=== PATIENT | male | born 1935 | race Caucasian/White ===

== ENCOUNTER 2022-12-19 22:53 | Inpatient (IN) | payer MEDICARE, OTHER ==
[~2022-12-19] VITALS: Ht 185.4 cm; Wt 68.9 kg
--- NOTE | 2022-12-19 23:11 | NUR ---
To ER bed 11, [id number] from home for syncopal episode, found by family in hallway, no injuries noted, aaox4, breathing even and non labored, connected to monitor, awaiting md orders
[2022-12-19] MEDS ORDERED: IV NS 0.9% 500 ML BAG IV ONE (23:30)
--- NOTE | 2022-12-19 23:31 | NUR ---
BLOOD SENT TO LAB
[2022-12-19 23:51] LABS: BASOPHILS % (AUTO) 0.1 % (0.0-2.0); HEMATOCRIT 34 % (39-51); HEMOGLOBIN 11.6 g/dL (13.5-17.5); LYMPHOCYTES # (AUTO) 0.2 K/uL (0.8-4.8); LYMPHOCYTES % (AUTO) 1.2 % (20.0-44.0); MEAN CORPUSCULAR HGB CONC 35 g/dl (31.0-36.0); MEAN CORPUSCULAR VOLUME 104 fL (80-96); MONOCYTES # (AUTO) 0.9 K/uL (0.1-1.30); MONOCYTES % (AUTO) 4.5 % (2.0-12.0); NEUTROPHILS % (AUTO) 94.2 % (43.0-81.0); PLATELET COUNT (AUTO) 114 K/uL (150-450); RED BLOOD CELL COUNT(AUTO) 3.25 MIL/uL (4.5-6.0); WHITE BLOOD COUNT (AUTO) 19.1 K/uL (4.3-11.0)
[2022-12-19 23:59] LABS: CALCIUM, SERUM 8.6 mg/dL (8.5-10.1); CARBON DIOXIDE 26 mmol/L (21-32); CHLORIDE 108 mmol/L (98-107); CREATININE 1.4 mg/dL (0.6-1.3); GLUCOSE 139 mg/dL (74-106); SODIUM SERUM 141 mmol/L (136-145); UREA NITROGEN, BLOOD 21 mg/dL (7-18)
[2022-12-20 00:08] LABS: ALANINE AMINOTRANSFERASE 8 U/L (12-78); ALBUMIN 3.3 g/dL (3.4-5.0); ALKALINE PHOSPHATASE 106 U/L (46-116); ASPARTATE AMINOTRANSFERASE 18 U/L (15-37); BILIRUBIN,DIRECT 0.5 mg/dL (0.0-0.2); BILIRUBIN,TOTAL 1.8 mg/dL (0.2-1.0)
--- NOTE | 2022-12-20 00:10 | NUR ---
COVID SWAB DONE AND SENT TO LAB
--- NOTE | 2022-12-20 00:16 | NUR ---
TAKEN TO CT
--- NOTE | 2022-12-20 00:16 | NUR ---
118 DEEPALI WORTHY MADE AWARE
--- NOTE | 2022-12-20 02:19 | NUR ---
PT USED BEDSIDE COMMODE. NEEDS MET
--- NOTE | 2022-12-20 02:52 | NUR ---
REPORT GIVEN TO MARIEL FERREIRA FOR DAISY
[2022-12-20] MEDS ORDERED: IV NS 0.9% 1,000 ML IV ONE (03:30)
[2022-12-20 03:44] VITALS: BP 94/42
--- NOTE | 2022-12-20 03:50 | NUR ---
INDUSTRIAL SAFETY ENGINEER NOTE PT RECEIVED FROM ER VIA PARISA TOLD ER NURSE ABOUT TROP 131, PER HER SHE WILL LET [employer] [facility] KNOW ABOUT IT. PT IS A/O X 3, NO SOB, NO DISTRESS OR DISCOMFORT NOTED. DENIES PAIN. RAC #20G SL INTACT AND PATENT. SKIN INTACT. ON TELE SR VSS. SIDE RAILS UP X 3 AND CALL LIGHT WITHIN REACH. CONTINUE TO MONITOR.
[2022-12-20] MEDS ORDERED: TEMAZEPAM 15 MG CAPSULE PO PRN (04:00)
[2022-12-20] MEDS ORDERED: ONDANSETRON HCL/PF 4 MG/2 ML VIAL IVP PRN (04:00)
[2022-12-20] MEDS ORDERED: MORPHINE SULFATE INJ 2 MG/ML DISP.SYRIN IV PRN (04:00)
[2022-12-20] MEDS ORDERED: MAG HYDROX/AL HYDROX/SIMETH 30 ML UDC PO PRN (04:00)
[2022-12-20] MEDS ORDERED: ACETAMINOPHEN 325 MG TABLET PO PRN (04:00)
[2022-12-20] MEDS ORDERED: IV NS 0.9% 1,000 ML IV PRN (04:00)
[2022-12-20] MEDS ORDERED: HYDROCODONE/APAP 5/325MG TABLET PO PRN (04:00)
[2022-12-20] MEDS ORDERED: Z GUARD REMEDY 4 OZ OINT TP PRN (04:00)
[2022-12-20] MEDS ORDERED: MAGNESIUM HYDROXIDE 30 ML UDC PO PRN (04:00)
--- NOTE | 2022-12-20 04:16 | NUR ---
COPYRIGHT MANAGER NOTE PT IS DX SYNCOPE,NSTEMI EJ BY HUGO MORALES.
[2022-12-20 06:00] VITALS: BP 105/43
--- NOTE | 2022-12-20 06:51 | NUR ---
EXPLOSIVE OPERATOR BOMB NOTE PT IN BED AWAKE. NO DISTRESS OR DISCOMFORT NOTED. ON IVF NS 75 ML/HR INFUSING WELL. NO S/S OF INFILTRATION NOTED. WILL ENDORSE TO DAY SHIFT NURSE FOR CONTINUE TO CARE.
[2022-12-20] MEDS ORDERED: PANTOPRAZOLE 40 MG TABLET.DR PO SCH (07:30)
--- NOTE | 2022-12-20 07:30 | NUR ---
YARD JOCKEY OPENING NOTE: RECEIVED PT IN BED AAOX3. PLEASANT AND COOPERATIVE. NO SOB. NO DYSPNEA NOTE. DENIES PAIN OR DISCOMFORT. R AC 20 G INTACT AND PATENT. ABLE TO DENY PAIN OR DISCOMFORT. WILL CONT TO MONITOR
--- NOTE | 2022-12-20 07:45 | NUR ---
SOFTWARE MAINTENANCE ENGINEER NOTE: DAUGHTER CAME AT BEDSIDE. REQUEST TO GO AMA. NOTIFIED. SIGNED AMA FORM AND PLACED IN CHART. PT IS AAOX3. IV ACCESS REMOVED. INTACT TIP. ID BAND REMOVED. TELE BOX REMOVED. PT BELONGINGS ACCOUNTED FOR. ACCOMPANIED VIA WHEELCHAIR TO EVERTON GARCIA IN FRONT OF THE HOSPITAL.
[2022-12-20] MEDS ORDERED: ASPIRIN 81 MG TAB.CHEW PO SCH (09:00)
== END 2022-12-20 08:29 | disposition left against medical advice (07) | DRG 280 ==
LOC: ER 22:55 → TELE1 12-20 02:38
PROVIDERS: ADMIT Nurse Practitioner Acute Care; ATTEND Internal Medicine
DX: R55 Syncope and collapse (principal); N17.0 Acute kidney failure with tubular necrosis; I21.A1 Myocardial infarction type 2; E44.0 Moderate protein-calorie malnutrition; C34.90 Malignant neoplasm of unspecified part of unspecified bronchus or lung; E86.0 Dehydration; N18.9 Chronic kidney disease, unspecified; D53.9 Nutritional anemia, unspecified; E80.6 Other disorders of bilirubin metabolism; D72.829 Elevated white blood cell count, unspecified; Z20.822 Contact with and (suspected) exposure to COVID-19
CPT/HCPCS: 36415; 70450-TC; 71045-TC; 80048-TC; 80076-TC; 84484-TC; 85025-TC; 87081-TC; A4223; C9803; G0378; J7030; J7040